=== PATIENT | female | born 1995 | race Hispanic/Latino ===

== ENCOUNTER 2025-02-27 15:30 | Inpatient (IN) | payer OTHER ==
[2025-02-27 16:36] VITALS: BMI 34.7
[2025-02-27 17:02] LABS: #Basophils 0.04 10x3/uL (0.0-0.2); #Eosinophils 0.05 10x3/uL (0.0-0.5); #Monocytes 0.66 10x3/uL (0.0-1.1); #Neutrophils 7.79 10x3/uL (1.5-8.4); %Basophils 0.3 % (0.0-2.0); %Eosinophils 0.4 % (0.0-6.0); %Lymphocytes 27.8 % (18.0-47.0); %Monocytes 5.5 % (0.0-10.0); %Neutrophils 65.3 % (40.0-75.0); Hematocrit 19.7 % (34.9-44.5); Hemoglobin 6.6 g/dL (12.0-15.5); Mean Corpuscular Hemoglobin 31.3 pg (27.0-33.0); Mean Corpuscular Volume 93.4 fL (81.6-98.3); Platelet Count 330 10x3/uL (150-450); Red Blood Cell (RBC) Count 2.11 10x6/uL (3.90-5.03); White Blood Cell (WBC) Count 11.94 10x3/uL (3.5-10.5)
[2025-02-27] MEDS ORDERED: Melatonin 3 MG TAB PO PRN (17:04)
[2025-02-27 17:08] LABS: ALT (SGPT) 19 U/L (Less than 34); AST (SGOT) 21 U/L (11-34); Albumin 3.0 g/dL (3.1-4.5); Alkaline Phosphatase 48 U/L (40-110); Anion Gap 11 mmol/L (10-20); BUN (Urea Nitrogen) 5 mg/dL (7.0-18.7); Bilirubin, Total 0.1 mg/dL (0.3-1.2); Calc. Creatinine Clearance 177 mL/min (70-130); Calcium 7.8 mg/dL (7.8-10.44); Carbon Dioxide 19 mmol/L (22-29); Chloride 109 mmol/L (98-107); Globulin 2.6 g/dL (2.4-3.5); Glucose 92 mg/dL (70-105); Potassium 3.6 mmol/L (3.5-5.1); Sodium 135 mmol/L (136-145)
[2025-02-27] MEDS: Acetaminophen 325 MG TAB PO PRN (17:09)
[2025-02-27 17:16] LABS: Fibrinogen 272.0 mg/dL (220-504); INR-International Normal Ratio 1.1; PTT 27.2 sec (22.0-33.0); Prothrombin Time 12.1 sec (9.5-12.1)
[2025-02-27] MEDS: Ondansetron PF 4 MG/2 ML Vial IVP PRN (18:58)
[2025-02-27] MEDS: Tranexamic Acid 1,000 MG/10 ML VIAL IVP SCH (19:50)
[2025-02-27 22:26] LABS: Hematocrit 23.5 % (34.9-44.5); Hemoglobin 7.9 g/dL (12.0-15.5); Platelet Count 289 10x3/uL (150-450)
[2025-02-27 22:36] LABS: BHCG - Serum Negative (NEGATIVE); Pregs Control Background? CLEAR/WHITE (CLR/WHITE); Pregs Control Bar Appear? YES (CONTROL BAR)
[2025-02-27] MEDS: Magnesium 2 GM/50 ML(in water) 1 GM in Premix 1 BAG IVPB SCH (23:20)
[2025-02-27] MEDS: Ketorolac Tromethamine 30 MG (1 mL) VIAL IVP PRN (23:31)
[2025-02-28] MEDS ORDERED: Acetaminophen 500 MG TAB PO PRN (05:52)
[2025-02-28 06:01] LABS: Hematocrit 22.3 % (34.9-44.5); Hemoglobin 7.4 g/dL (12.0-15.5); Platelet Count 295 10x3/uL (150-450)
[2025-02-28] MEDS: Fioricet 325/50/40 mg Tablet PO SCH (06:45)
[2025-02-28] MEDS: Tranexamic Acid 1,000 MG/10 ML VIAL IVP SCH (06:45)
[2025-02-28] MEDS: Famotidine 20 MG TAB PO SCH (08:56)
[2025-02-28] MEDS: Promethazine HCl 12.5 MG, Admixture Fee 1 EACH in Sodium Chloride 0.9% 50 ML IVPB SCH (14:52)
[2025-02-28 20:22] LABS: Hematocrit 26.3 % (34.9-44.5); Hemoglobin 8.8 g/dL (12.0-15.5)
[2025-03-01 03:46] LABS: Hematocrit 24.7 % (34.9-44.5); Hemoglobin 8.3 g/dL (12.0-15.5)
[2025-03-01 12:02] LABS: Hematocrit 24.9 % (34.9-44.5); Hemoglobin 8.3 g/dL (12.0-15.5)
[2025-03-02 10:06] LABS: Hematocrit 26.9 % (34.9-44.5); Hemoglobin 8.9 g/dL (12.0-15.5)
[2025-03-02] MEDS: Fioricet 325/50/40 mg Tablet PO SCH (17:29)
[2025-03-03] MEDS: Acetaminophen 500 MG TAB PO SCH (08:19)
[2025-03-03] MEDS: Fioricet 325/50/40 mg Tablet PO PRN (10:52)
[2025-03-03] MEDS: Fioricet 325/50/40 mg Tablet PO SCH (14:16)
[2025-03-03] MEDS: Metoclopramide HCl 10 MG (2 mL) VIAL IVP SCH (16:46)
[2025-03-03 17:02] VITALS: BP 108/72; TEMP 98.4
== END 2025-03-03 18:50 | disposition home or self-care (01) | DRG 760 ==
LOC: CSHTELE 15:30 → OBSVTOIN 16:04
PROVIDERS: ADMIT Obstetrics & Gynecology; ATTEND Internal Medicine
PROC: 30233N1 Transfusion of Nonautologous Red Blood Cells into Peripheral Vein, Percutaneous Approach (ICD-10-PCS; principal; 2025-02-27)
DX: N93.9 Abnormal uterine and vaginal bleeding, unspecified (principal); D68.32 Hemorrhagic disorder due to extrinsic circulating anticoagulants; D64.9 Anemia, unspecified; N83.202 Unspecified ovarian cyst, left side; M54.9 Dorsalgia, unspecified; N92.1 Excessive and frequent menstruation with irregular cycle; N80.42 Endometriosis of rectovaginal septum with involvement of vagina; R51.9 Headache, unspecified; Z86.718 Personal history of other venous thrombosis and embolism; Z79.01 Long term (current) use of anticoagulants; Z88.6 Allergy status to analgesic agent
CPT/HCPCS: 36415; 36430; 70450; 72125; 76856; 80053; 84703; 85014; 85018; 85025; 85049; 85384; 85610; 85730; 86850; 86900; 86901; J1885; J2270; J2405; J2550; J2765; J3475; J7030; P9016